=== PATIENT | female | born 1960 | race Caucasian/White ===

== ENCOUNTER → 2021-05-10 | Day surgery (SDC) | payer OTHER ==
[~2021-05-10] VITALS: Ht 167.6 cm; Wt 77.6 kg
[~2021-05-10] MED LIST: ASPIRIN EC81 MG PO; CALCIUM CARBON600 M1 PO; CANDICIDAL CAP1 EACH PO; GLUCOSAMINE-CH1 EA17 PO; PROGESTERONE200 MG PO; SYNTHROID112 MCG PO; VITAMIN A AND1 EACH PO; VITAMIN B-122500 MCG PO; XARELTO10 MG PO
[2021-05-10 08:28] LABS: HCT 45.5 % (37.0-47.0); HGB 15.6 g/dl (12.5-16.0); MCH 32.8 pg (25.0-31.0); MCHC 34.3 g/dL (32.0-36.0); MCV 95.8 fL (78.0-100.0); MPV 9.2 fL (6.0-9.5); RBC 4.75 M/uL (4.20-5.40); RDW 12.3 % (11.5-14.0); WBC 8.5 K/uL (4.0-10.5)
[2021-05-10 09:01] LABS: ALBUMIN 4.6 g/dL (3.4-5.0); BILIRUBIN - TOTAL 0.6 mg/dL (0.2-1.0); BUN/CREAT RATIO (CALC) 14.3 RATIO; CREATININE 0.98 mg/dL (0.51-0.95); GLOBULIN (CALCULATION) 3.5 g/dL; POTASSIUM 4.2 mmol/L (3.5-5.1); TOTAL PROTEIN 8.1 g/dL (6.4-8.2)
== END | disposition home or self-care (01) ==
LOC: FAS 07:56
PROVIDERS: Surgery
DX: Z12.11 Encounter for screening for malignant neoplasm of colon (principal); Z88.0 Allergy status to penicillin; Z88.6 Allergy status to analgesic agent; Z79.82 Long term (current) use of aspirin; Z79.899 Other long term (current) drug therapy; Z90.49 Acquired absence of other specified parts of digestive tract
CPT/HCPCS: 36415; 80053; J0690; J2704; J7120